=== PATIENT | female | born 1945 | race Caucasian/White ===

== ENCOUNTER 2023-08-11 10:54 | Emergency (ER) | payer MEDICARE, OTHER ==
--- NOTE | 2023-08-11 12:07 | XRAY Report ---
PROCEDURE: Wrist 4 View RT INDICATIONS: Trauma TECHNIQUE: 3 views of the wrist were acquired. COMPARISON: None. FINDINGS: Bones: No fractures or dislocations. Joint spaces are maintained. No suspicious bony lesions. Soft tissues: No suspicious soft tissue calcifications or masses. IMPRESSION: No acute bony abnormality. If there is point tenderness of the scaphoid, consider repeat radiograph i n 7-10 days. Reviewed by: Sandip Hendrix MD on 08/11/2023 12:06 PM PST Approved by: Sandip Hendrix MD on 08/11/2023 12:06 PM PST Station ID: [id number]
--- NOTE | 2023-08-11 12:15 | ED Physician Documentation ---
PD HPI UPPER EXT INJURY - Stated complaint Stated Complaint: R HAND INJURY S/P FALL - Chief complaint Chief Complaint: Trauma Ext - History obtained from History obtained from: Patient - Additonal information Additional information: [place] injuring her right hand and wrist. Also has minor pain of the chin and ribs this morning. Declines anything for pain. Does not have a headache or neck pain. PD PAST MEDICAL HISTORY - Past Medical History Cardiovascular: Hypertension Respiratory: None Neuro: None Endocrine/Autoimmune: None GI: None KINESIOLOGY PROFESSOR: None : Incontinence Psych: Depression Musculoskeletal: None Derm: None - Past Surgical History General: Gastric surgery /KINESIOLOGY PROFESSOR: Other - Present Medications Home Medications: Ambulatory Orders Medication Instructions Recorded Confirmed Lisinopril [Zestril] 20 mg PO DAILY 08/11/23 08/11/23 Sertraline HCl 100 mg PO DAILY 08/11/23 08/11/23 buPROPion HCL [Bupropion HCl Sr] 150 mg PO DAILY 08/11/23 08/11/23 dilTIAZem HCL [Diltiazem 24Hr ER] 240 mg PO DAILY 08/11/23 08/11/23 - Allergies Allergies/Adverse Reactions: Allergies Allergy/AdvReac Type Severity Reaction Status Date / Time bisoprolol [From Ziac] AdvReac Anxiety Verified 08/11/23 11:18 hydrochlorothiazide AdvReac Anxiety Verified 08/11/23 11:18 [From Ziac] - Social History Does the pt smoke?: No Smoking Status: Never smoker Does the pt drink ETOH?: No Does the pt have substance abuse?: No - Immunizations Immunizations are current?: Yes PD ED PE NORMAL - Vitals Vital signs reviewed: Yes - General General: Alert and oriented X 3, No acute distress - Neck Neck: Supple, no meningeal sign, No bony TTP - Cardiac Cardiac: RRR, No murmur - Respiratory Respiratory: No respiratory distress, Clear bilaterally, Other (Unable to elicit any rib tenderness) - Abdomen Abdomen: Non tender - Derm Derm: Normal color, Warm and dry - Extremities Extremities: Other (The entirety of the left hand and wrist is swollen and bruised. It seems that the maximal point of tenderness is of the distal third metacarpal. There is no snuffbox tenderness. No specific wrist tenderness.) - Neuro Neuro: Alert and oriented X 3, Normal speech Eye Opening: Spontaneous Motor: Obeys Commands Results - Vitals Vitals: Vital Signs - 24 hr 08/11/23 11:11 Temperature 36.5 C Heart Rate 70 Respiratory 14 Rate Blood Pressure 135/80 H O2 Saturation 95 - Rads (name of study) 4 view x-ray right wrist negative. Relevant Findings:: Final report received, EMP independent interpretation of test PD Medical Decision Making - ED course ED course: Not consistent with a scaphoid fracture clinically. Maximal point of tenderness is distal third metacarpal which is well visualized on the wrist x-rays without fracture. She is placed in a wrist splint. Declined prescription pain medications. Does not seem clinically to have a rib fracture but x-rays offered and declined by patient. Departure - Departure Disposition: 01 Home, Self Care Clinical Impression: Right wrist sprain Qualifiers: Encounter type: initial encounter Qualified Code(s): S63.501A - Unspecified sprain of right wrist, initial encounter Condition: Good Record reviewed to determine appropriate education?: Yes Instructions: ED Sprain Wrist Comments: Tylenol and/or ibuprofen as needed for pain. Return for new or worsening symptoms. Follow-up with your doctor in 1 week if not improving for recheck.
[2023-08-11 12:34] VITALS: BP 134/81; O2SAT 96
== END 2023-08-11 12:26 | disposition home or self-care (01) ==
LOC: ED 10:54
DX: S63.501A Unspecified sprain of right wrist, initial encounter (principal); W00.0XXA Fall on same level due to ice and snow, initial encounter; Y93.89 Activity, other specified; Y92.89 Other specified places as the place of occurrence of the external cause
CPT/HCPCS: 99283

== ENCOUNTER 2024-12-20 19:54 | Inpatient (IN) ==
[2024-12-20] MEDS ORDERED: iohexoL-300 100 ML VIAL ONE (20:19)
--- NOTE | 2024-12-20 20:20 | ED Physician Documentation ---
History of Present Illness Stated complaint Stated Complaint: ABD PX/V Chief complaint Chief Complaint: Abd Pain History obtained from History obtained from: Patient History of Present Illness Timing: Today Pain level max: 8 Pain level now: 8 Additonal information Additional information: 78-year-old female with left lower quadrant abdominal pain that started around 3 PM today. Has had nausea and vomiting. No diarrhea or constipation. Has not had similar symptoms previously. Has a history of a hysterectomy, c holecystectomy and a gastric band. No fevers. No chills. No recent travel or antibiotics. No cough or congestion. No blood in the stool. No blood in the emesis. The pain is described as cramping and aching. Worse with movement and palpation, nothing makes it better Review of Systems Constitutional Denies: Fever or Chills Gastrointestinal Reports: Nausea and Vomiting Genitourinary Denies: Painful urination or Urinary urgency Musculoskeletal Denies: Back pain Neurological Denies: Headache Meds/Allgy Home Medications Ambulatory Orders Medication Instructions Recorded Confirmed bupropion HCl 150 mg tablet,12 hr 150 mg PO DAILY 08/11/23 08/11/23 sustained-release diltiazem HCl 240 mg capsule,24 240 mg PO DAILY 08/11/23 08/11/23 hr,extended release lisinopril 20 mg tablet (Zestril) 20 mg PO DAILY 08/11/23 08/11/23 sertraline 100 mg tablet 100 mg PO DAILY 08/11/23 08/11/23 Allergies Allergies Allergy/AdvReac Type Severity Reaction Status Date / Time bisoprolol (From Ziac) AdvReac Anxiety Verified 12/20/24 19:59 hydrochlorothiazide (From AdvReac Anxiety Verified 12/20/24 19:59 Ziac) PFSH Active Problems All Active Problems (Updated 12/20/24 @ 23:35 by Ramón Christopher MD) Hypoxia (Acute) Diverticulitis (Acute) Abdominal pain (Acute) Vomiting (Acute) Medical History Medical History (Updated 12/20/24 @ 23:35 by Ramón Christopher MD) Diverticulitis Social History Social History Smoking Status: Never smoker Relationship: Do you feel safe in your home environment?: Yes Suffered physical, verbal, emotional, or financial abuse?: No History of Abuse: No Exam Exam Vital Signs: Vital Signs x48h Temp Pulse Resp BP Pulse Ox O2 Flow Rate 12/20/24 23:00 92 18 156/80 H 91 L 4 12/20/24 22:30 37 C 93 20 147/91 H 91 L 4 12/20/24 22:00 128 H 20 131/90 H 92 6 12/20/24 21:30 134 H 14 127/89 94 4 12/20/24 21:14 132 H 20 131/90 H 94 4 12/20/24 20:44 132 H 92 6 12/20/24 20:03 136 H 18 128/96 H 88 L 12/20/24 20:01 36.6 C 147 H 22 116/89 94 Constitutional normal general appearance Patient appears in pain. HENMT normocephalic and head/scalp atraumatic Eyes PERRL Neck/C-Spine trachea midline Respiratory breath sounds equal bilaterally and normal respiratory effort Cardiovascular regular rhythm noted Tachycardic Gastrointestinal abdomen soft to palpation and nondistended Tender palpation left lower quadrant and left side of the abdomen. No peritoneal signs Genitourinary no CVA tenderness Back/Pelvis no thoracic spine tenderness and no lumbar spine tenderness Extremities No edema Psychiatry mental status grossly normal and oriented x3 Skin skin color normal and no rash Results Vitals Vitals: Vital Signs - 24 hr 12/20/24 20:01 12/20/24 20:03 12/20/24 20:44 Temperature 36.6 C Temperature Source Oral Pulse Rate 147 H 136 H 132 H Respiratory Rate 22 18 Blood Pressure 116/89 128/96 H O2 Saturation 94 88 L 92 O2 Source Room air Room air Nasal cannula If not protocol: Oxygen Flow, liters/minute 6 Pain Intensity 6 8 12/20/24 21:14 12/20/24 21:30 12/20/24 22:00 Temperature Temperature Source Pulse Rate 132 H 134 H 128 H Respiratory Rate 20 14 20 Blood Pressure 131/90 H 127/89 131/90 H O2 Saturation 94 94 92 O2 Source Nasal cannula Nasal cannula Nasal cannula If not protocol: Oxygen Flow, liters/minute 4 4 6 Pain Intensity 12/20/24 22:30 12/20/24 23:00 12/20/24 23:01 Temperature 37 C Temperature Source Temporal Artery Scan Pulse Rate 93 92 Respiratory Rate 20 18 Blood Pressure 147/91 H 156/80 H O2 Saturation 91 L 91 L O2 Source Nasal cannula Nasal cannula If not protocol: Oxygen Flow, liters/minute 4 4 Pain Intensity 7 7 Oxygen O2 Source Nasal cannula EKG (time done) 2012: EKG releavant findings:: EKG personally interpreted by author of this note. Relevant findings are: Rate: Other (139 bpm, sinus tachycardia, multiple PVC, normal axis, normal OR, non-specific ST changes) Labs Labs: Laboratory Tests 12/20/24 12/20/24 12/20/24 20:31 21:08 22:08 WBC 23.2 H RBC 5.77 H Hgb 17.2 H Hct 52.2 H MCV 90.5 MCH 29.8 MCHC 33.0 RDW 14.1 Plt Count 213 MPV 10.6 Neut # (Auto) 20.9 H Lymph # (Auto) 0.7 L Winkler # (Auto) 1.5 H Eos # (Auto) 0.0 Baso # (Auto) 0.1 Absolute Nucleated RBC 0.00 Band Neuts % (Manual) Not Reportable Abnorm Lymph % (Manual) Not Reportable Nucleated RBC % 0.0 Neutrophils # (Manual) Not Reportable Lymphocytes # (Manual) Not Reportable Monocytes # (Manual) Not Reportable Eosinophils # (Manual) Not Reportable Basophils # (Manual) Not Reportable Differential Comment MANUAL=AUTO DIFF Platelet Estimate NORMAL (130-450,000) Platelet Morphology 1+ LARGE PLATELETS RBC Morph Micro Appear NORMAL APPEARANCE Sodium 137 Potassium 4.2 Chloride 101 Carbon Dioxide 23 Anion Gap 13.0 BUN 22 H Creatinine 1.5 H Estimated GFR (MDRD) 33 L Glucose 174 H Lactic Acid 1.6 Calcium 9.3 Total Bilirubin 0.5 AST 27 ALT 25 Alkaline Phosphatase 64 Total Protein 7.3 Albumin 4.5 Globulin 2.8 Albumin/Globulin Ratio 1.6 Lipase 27 Urine Color DARK YELLOW Urine Clarity CLEAR Urine pH 6.0 Ur Specific Cunningham 1.015 Urine Protein TRACE Urine Glucose (UA) NEGATIVE Urine Ketones NEGATIVE Urine Occult Blood NEGATIVE Urine Nitrite NEGATIVE Urine Bilirubin NEGATIVE Urine Urobilinogen 0.2 (NORMAL) Ur Leukocyte Esterase NEGATIVE Ur Microscopic Review NOT INDICATED Urine Culture Comments NOT INDICATED Rads (name of study) CT abd/pel: Relevant Findings:: Final report received cxr: Relevant Findings:: Final report received PD Medical Decision Making ED course Complexity details: reviewed results, re-evaluated patient, considered differential and d/w patient ED course: 78-year-old female with sudden onset abdominal pain earlier today. CT scan was consistent with colitis/diverticulitis. Given a dose of IV Zosyn. Given IV Dilaudid and Zofran. Given IV fluids. She was initially quite tachycardic in the emergency department, this resolved with fluids and pain medication. She was also found to be hypoxic upon arrival to the emergency department, mid to low 80s for oxygen saturation. Unclear etiology. Placed on oxygen. Has a significant elevation of her white blood cell count, 23,000 and appears hemocon centrated with a hemoglobin of 17. At the time of signout, a BNP is pending as well as a respiratory PCR. Please see Dr. Shahid's note for further care of this patient. This document was made in part using voice recognition software. While efforts are made to proofread this document, sound alike and grammatical errors may occur. Discharge Plan Discharge Condition: Stable Clinical Impression: Diverticulitis, Hypoxia Vomiting Qualifiers: Vomiting type: unspecified Nausea presence: with nausea Qualified Code(s): R11.2 - Nausea with vomiting, unspecified Abdominal pain Qualifiers: Abdominal location: unspecified location Qualified Code(s): R10.9 - Unspecified abdominal pain Prescriptions: No Action bupropion HCl 150 MG tablet sustained-release 12 hr 150 mg PO DAILY lisinopril [Zestril] 20 MG tablet 20 mg PO DAILY sertraline 100 MG tablet 100 mg PO DAILY diltiazem HCl 240 MG capsule,extended release 24 hr 240 mg PO DAILY Print Language: Luxembourgish Stand Alone Forms: PCP List
[2024-12-20 20:38] LABS: BASOPHILS # (AUTO) 0.1 10^3/uL (0.0-0.1); BASOPHILS % (AUTO) 0.3 %; HCT - HEMATOCRIT 52.2 % (37.0-47.0); HGB - HEMOGLOBIN 17.2 g/dL (12.0-16.0); LYMPHOCYTES # (AUTO) 0.7 10^3/uL (1.5-3.5); LYMPHOCYTES % (AUTO) 3.1 %; MEAN CORPUSCULAR HEMOGLOBIN 29.8 pg (27.0-31.0); MEAN CORPUSCULAR VOLUME 90.5 fL (81.0-99.0); MEAN PLATELET VOLUME 10.6 fL (7.9-10.8); MONOCYTES # (AUTO) 1.5 10^3/uL (0.0-1.0); MONOCYTES % (AUTO) 6.3 %; NEUTROPHILS # (AUTO) 20.9 10^3/uL (1.5-6.6); NEUTROPHILS % (AUTO) 89.7 %; PLT - PLATELET COUNT 213 10^3/uL (130-450); RED BLOOD COUNT 5.77 10^6/uL (4.20-5.40); RED CELL DISTRIBUTION WIDTH 14.1 % (12.0-15.0); WHITE BLOOD COUNT 23.2 x10^3/uL (4.8-10.8)
[2024-12-20] MEDS: HYDROmorphone 1 MG/ML SYRINGE IVP STA (20:45)
[2024-12-20] MEDS: ONDANSETRON 4 MG/2 ML VIAL IVP STA ×2 (20:46→23:01)
[2024-12-20] MEDS: SODIUM CHLORIDE 0.9% 1,000 ML IV STA ×3 (20:46→23:01)
--- OUTSIDE RECORDS SUMMARY | 2024-12-20 21:04 | EXTERNAL MEDICAL SUMMARY RPT | Continuity of Care Document ---
Author Organization [facility] Address [address] [place] [id number] Phone Results/Labs test date facility value unit notes Result panel 1 MEAN PLATELET VOLUME 2024-12-20 20:31 [facility] 10.6 fl (missing) RED CELL DISTRIBUTION WIDTH 2024-12-20 20:31 [facility] 14.1 % (missing) HGB - HEMOGLOBIN 2024-12-20 20:31 [facility] 17.2 g /dl (missing) PLT - PLATELET COUNT 2024-12-20 20:31 [facility] 213 10 3/ul (missing) WHITE BLOOD COUNT 2024-12-20 20:31 [facility] 23.2 x10 3/ul (missing) MEAN CORPUSCULAR HEMOGLOBIN 2024-12-20 20:31 [facility] 29.8 pg (missing) MEAN CORPUSCULAR HGB CONC 2024-12-20 20:31 [facility] 33 .0 g/dl (missing) RED BLOOD COUNT 2024-12-20 20:31 [facility] 5.77 10 6/ul (missing) HCT - HEMATOCRIT 2024-12-20 20:31 [facility] 52.2 % (missing) MEAN CORPUSCULAR VOLUME 2024-12-20 20:31 [facility] 90.5 fl (missing) Social History date description facility
[2024-12-20 21:07] LABS: DIFFERENTIAL COMMENT MANUAL=AUTO DIFF; PLATELET ESTIMATE, MANUAL NORMAL (130-450,000) (NORMAL); PLATELET MORPHOLOGY 1+ LARGE PLATELETS (NORMAL); RBC MORPHOLOGY (MULTIPLE) NORMAL APPEARANCE (NORMAL)
[2024-12-20 21:37] LABS: ALBUMIN 4.5 g/dL (3.2-5.5); ALBUMIN/GLOBULIN RATIO 1.6 (1.0-2.2); BILIRUBIN,TOTAL 0.5 mg/dL (0.2-1.0); CALCIUM 9.3 mg/dL (8.5-10.3); CREATININE 1.5 mg/dL (0.6-1.3); POTASSIUM 4.2 mmol/L (3.5-4.5); TOTAL PROTEIN 7.3 g/dL (6.4-8.9)
[2024-12-20] MEDS: iohexoL-300 100 ML VIAL IVP ONE (21:50)
--- NOTE | 2024-12-20 22:13 | CT Report ---
PROCEDURE: CT Abdomen/Pelvis W INDICATIONS: LLQ abd pain CONTRAST: 100 ML OMNI TECHNIQUE: After the administration of intravenous contrast, a CT scan of the abdomen and pelvis was performed. Images were recorded and evaluated at appropriate window settings. Reformats: coronal and sagittal. F or radiation dose reduction, the following was used: automated exposure control, adjustment of mA and /or kV according to patient size. COMPARISON: None. FINDINGS: Image quality: Diagnostic. Lower chest: Bibasilar scarring/atelectasis is seen. Heart size is enlarged, no pericardial effusion. Small to moderate-sized hiatal hernia.. Liver: No solid mass. Moderate hepatic steatosis. Scattered hypodensities are seen in right and left hepatic lobes and may represent hepatic cysts measures up to 1.1 cm in size in right hepatic lobe ser ies 2 image 28. Gallbladder: Gallbladder is surgically absent. Biliary tree: No intrahepatic or extrahepatic dilation, accounting for age. Spleen: No splenomegaly. Pancreas: No pancreatic ductal dilation. Adrenals: No adrenal nodule. Kidneys and ureters: No hydronephrosis. No renal cystic lesion which requires follow up. No solid mas s. Stomach, bowel and peritoneum: There is prior gastric banding with postsurgical changes seen in epiga stric region. No evidence of bowel obstruction. No gastric or small bowel wall thickening. Appendix i s not definitively identified. No focal inflammatory changes are seen in right lower quadrant abdomen . Moderate fecal stasis in the colon is seen. There is significant colonic wall thickening and luz maria lonic fat stranding involving mid to distal descending colon and extending to involve the proximal to mid sigmoid colon with small amount of adjacent free fluid in left lower quadrant. No peritoneal josh e air. No definite extraluminal air. No abscess collection. Redundant sigmoid colon is noted. Lymph nodes: No central or retroperitoneal adenopathy. Vessels: No infrarenal aortic aneurysm. Patent portal vein. PELVIS Reproductive organs: Unremarkable. Bladder: No abnormal wall thickening. Pelvic lymph nodes: No pelvic adenopathy by size criteria. Bones: No aggressive osseous abnormality. Other: No significant ventral or inguinal hernia. IMPRESSION: 1. Finding is suggestive of descending colon and sigmoid colitis. Superimposed focal diverticulitis i n distal descending colon/proximal sigmoid colon cannot be excluded. Small amount of free fluid in le ft lower quadrant. No abscess collection. No signs of perforation. 2. Moderate constipation. No other area of abnormal bowel wall thickening. No peritoneal free air. 3. Moderate hepatic steatosis. Scattered hypodensities in liver parenchyma may represent hepatic cyst s. 4. Prior cholecystectomy. Prior lap band procedure. Reviewed by: Dm Cash MD on 12/20/2024 10:12 PM PDT Approved by: Dm Cash MD on 12/20/2024 10:12 PM PDT Station ID: [id number]
[2024-12-20 22:28] LABS: BILIRUBIN,URINE NEGATIVE (NEGATIVE); CLARITY,URINE CLEAR (CLEAR); GLUCOSE, URINE (UA) NEGATIVE (NEGATIVE); KETONES,URINE (UA) NEGATIVE (NEGATIVE); LEUKOCYTE ESTERASE, URINE NEGATIVE (NEGATIVE); NITRITE,URINE NEGATIVE (NEGATIVE); OCCULT BLOOD,URINE NEGATIVE (NEGATIVE); PROTEIN,URINE TRACE mg/dL (NEGATIVE); UROBILINOGEN,URINE 0.2 (NORMAL) E.U./dL (NORMAL)
[2024-12-20] MEDS: PIPERACILLIN/TAZOBACTAM 3.375 GM in SODIUM CHLORIDE 0.9% MINIBAG 100 ML IV STA (23:00)
[2024-12-20] MEDS: HYDROmorphone 0.5 MG/0.5 ML SYRINGE IVP STA (23:01)
--- NOTE | 2024-12-20 23:04 | XRAY Report ---
PROCEDURE: XR Chest 1V INDICATIONS: hypoxia TECHNIQUE: One view of the chest was acquired. COMPARISON: None. FINDINGS: Surgical changes and devices: None. Lungs and pleura: Mild appearance of increased vascularity. Mediastinum: Mediastinal contours appear normal. Heart size is enlarged. Bones and chest wall: No suspicious bony lesions. Overlying soft tissues appear unremarkable. IMPRESSION: Mild increased vascularity suggestive of edema. Reviewed by: Kristina Oliveros MD on 12/20/2024 11:03 PM PDT Approved by: Kristina Oliveros MD on 12/20/2024 11:03 PM PDT Station ID: [id number]
[2024-12-21 00:20] LABS: B. PARAPERTUSSIS- RESP PCR PAN NOT DETECTED; B. PERTUSSIS- RESP PCR PANEL NOT DETECTED; C. PNEUMONIAE- RESP PCR PANEL NOT DETECTED; CORONAVIRUS 229E-RESP PCR NOT DETECTED; CORONAVIRUS HKU1-RESP PCR NOT DETECTED; CORONAVIRUS NL63-RESP PCR NOT DETECTED; CORONAVIRUS OC43-RESP PCR NOT DETECTED; HUMAN METAPNEUMOVIRUS NOT DETECTED; INFLUENZA A- RESP PCR PANEL NOT DETECTED; INFLUENZA B - RESP PCR PANEL NOT DETECTED; M. PNEUMONIAE- RESP PCR PANEL NOT DETECTED; PARAINFLUENZA VIRUS 1 NOT DETECTED; PARAINFLUENZA VIRUS 2 NOT DETECTED; PARAINFLUENZA VIRUS 4 NOT DETECTED; RHINOVIRUS/ENTEROVIRUS NOT DETECTED; RSV- RESP PCR PANEL NOT DETECTED; SARS-CoV-2 -RESP PCR PANEL NOT DETECTED
[2024-12-21] MEDS: SODIUM CHLORIDE 0.9% 1,000 ML IV STA (01:21)
[2024-12-21] MEDS: ONDANSETRON 4 MG/2 ML VIAL IVP STA (02:20)
[2024-12-21] MEDS: HYDROmorphone 0.5 MG/0.5 ML SYRINGE IVP PRN ×2 (05:40→19:02)
[2024-12-21] MEDS: PIPERACILLIN/TAZOBACTAM 4.5 GM in SODIUM CHLORIDE 0.9% MINIBAG 100 ML IV SCH (05:40)
[2024-12-21 06:04] LABS: BASOPHILS % (AUTO) 0.1 %; HCT - HEMATOCRIT 53.2 % (37.0-47.0); HGB - HEMOGLOBIN 17.3 g/dL (12.0-16.0); LYMPHOCYTES % (AUTO) 2.7 %; MEAN CORPUSCULAR HGB CONC 32.5 g/dL (32.0-36.0); MEAN CORPUSCULAR VOLUME 92.2 fL (81.0-99.0); MONOCYTES % (AUTO) 7.2 %; NEUTROPHILS % (AUTO) 89.3 %; PLT - PLATELET COUNT 171 10^3/uL (130-450); RED BLOOD COUNT 5.77 10^6/uL (4.20-5.40); RED CELL DISTRIBUTION WIDTH 14.3 % (12.0-15.0); WHITE BLOOD COUNT 22.9 x10^3/uL (4.8-10.8)
[2024-12-21 06:11] LABS: ABNORMAL LYMPHS % (MANUAL) 0 %
[2024-12-21 06:18] LABS: CALCIUM 8.2 mg/dL (8.5-10.3); CREATININE 1.1 mg/dL (0.6-1.3); POTASSIUM 4.7 mmol/L (3.5-4.5)
[2024-12-21] MEDS: SODIUM CHLORIDE 0.9% 500 ML IV ONE (06:46)
[2024-12-21] MEDS: PANTOPRAZOLE 40 MG TABLET PO SCH (06:52)
[2024-12-21 06:54] LABS: BAND NEUTROPHILS % (MANUAL) 9 %; LYMPHOCYTES # (MANUAL) 0.2 10^3/uL (1.5-3.5); LYMPHOCYTES % (MANUAL) 1 %; MONOCYTES # (MANUAL) 0.7 10^3/uL (0.0-1.0); PLATELET ESTIMATE, MANUAL NORMAL (130-450,000) (NORMAL); RBC MORPHOLOGY (MULTIPLE) NORMAL APPEARANCE (NORMAL)
[2024-12-21 06:55] LABS: DIFFERENTIAL COMMENT MANUAL DIFFERENTIAL; WBC MORPHOLOGY (MULTIPLE) NORMAL APPEARANCE (NORMAL)
--- NOTE | 2024-12-21 07:20 | ED Physician Documentation ---
ED Addendum Addendum Addendum: patient endorsed to me at 11pm shift change awaiting admission for sepsis 2/2 diverticulitis/colitis, as well as hypoxia with possible pulmonary edema on cxr. Her BNP is normal and RVP was negative. Patient was provided with judicious fluids overnight. Plan to admit pending bed availability. Discharge Plan Discharge Patient Disposition: 66 [facility] DC/Xfer Condition: Stable Clinical Impression: Diverticulitis, Hypoxia Vomiting Qualifiers: Vomiting type: unspecified Nausea presence: with nausea Qualified Code(s): R11.2 - Nausea with vomiting, unspecified Abdominal pain Qualifiers: Abdominal location: unspecified location Qualified Code(s): R10.9 - Unspecified abdominal pain Prescriptions: No Action bupropion HCl 150 MG tablet sustained-release 12 hr 150 mg PO DAILY lisinopril [Zestril] 20 MG tablet 20 mg PO DAILY sertraline 100 MG tablet 100 mg PO DAILY diltiazem HCl 240 MG capsule,extended release 24 hr 240 mg PO DAILY Print Language: Tunisian
[2024-12-21] MEDS: ACETAMINOPHEN 500 MG TABLET PO PRN (08:54)
[2024-12-21] MEDS: ONDANSETRON 4 MG/2 ML VIAL IVP PRN (08:55)
--- NOTE | 2024-12-21 14:28 | PHARMACY PROGRESS NOTE ---
Best Possible Medication History Admit Date and Time: Home Medications Medication Instructions Recorded Confirmed Type bupropion HCl 150 mg tablet,12 hr 150 mg PO BID 08/11/23 12/21/24 History sustained-release lisinopril 20 mg tablet (Zestril) 20 mg PO BID 08/11/23 12/21/24 History sertraline 100 mg tablet 200 mg PO DAILY 08/11/23 12/21/24 History diltiazem HCl 240 mg 240 mg PO DAILY 12/21/24 12/21/24 History capsule,extended release 24 hr, controlled (DILT-XR) geriatric multivitamin-min 1 tab PO DAILY 12/21/24 12/21/24 History primidone 50 mg tablet 150 mg PO BID 12/21/24 12/21/24 History trospium 20 mg tablet 10 mg PO BID 12/21/24 12/21/24 History Processed by: Pharmacy Medications reviewed in ED?: Yes Medication History completed: Yes Secondary Source(s): Insurance records [facility] Statement: As the person ultimately responsible for medication therapy, providers are able to order a medication from an existing home medication list in [facility] via the "Reconcile Routine" prior to Confirmation of that medication by residential direct support professional. Such practice is discouraged except when the physician, in their clinical judgment, deems that a medical need exists for a medication without regard to previous use.
--- OUTSIDE RECORDS SUMMARY | 2024-12-21 15:04 | EXTERNAL MEDICAL SUMMARY RPT | Continuity of Care Document ---
Author Organization [facility] Address [address] [place] [id number] Phone Results/Labs test date facility value unit notes Result panel 1 NUCLEATED RED BLOOD CELLS AUTO 2024-12-20 20:31 [facility] 0.0 /100wbc (missing) EOSINOPHILS # (AUTO) 2024-12-20 20:31 [facility] 0.0 10 3/ul (missing) NRBC ABSOLUTE COUNT (AUTO) 2024-12-20 20:31 [facility] 0.00 x10 3/ul (missing) BASOPHILS # (AUTO) 2024-12-20 20:31 [facility] 0.1 10 3/ul (missing) BILIRUBIN,TOTAL 2024-12-20 20:31 [facility] 0.5 mg/dl As of March 2023 testing method has changed, this may include reference ranges. LYMPHOCYTES # (AUTO) 2024-12-20 20:31 [facility] 0.7 10 3/ul (missing) PLATELET MORPHOLOGY 2024-12-20 20:31 [facility] 1+ LARGE PLATELETS (missing) (missing) MONOCYTES # (AUTO) 2024-12-20 20:31 [facility] 1.5 10 3/ul (missing) CREATININE 2024-12-20 20:31 [facility] 1.5 mg/dl As of March 2023 testing method has changed, this may include reference ranges. ALBUMIN/GLOBULIN RATIO 2024-12-20 20:31 [facility] 1.6 (missing) (missing) MEAN PLATELET VOLUME 2024-12-20 20:31 [facility] 10.6 fl (missing) CHLORIDE 2024-12-20 20:31 [facility] 101 mmol/l As of March 2023 testing method has changed, this may include reference ranges. ANION GAP 2024-12-20 20:31 [facility] 13.0 (missing) (missing) SODIUM 2024-12-20 20:31 [facility] 137 mmol/l As of March 2023 testing method has changed, this may include reference ranges. RED CELL DISTRIBUTION WIDTH 2024-12-20 20: [facility] 14.1 % (missing) HGB - HEMOGLOBIN 2024-12-20 20: [facility] 17.2 g/dl (missing) GLUCOSE 2024-12-20 20: [facility] 174 mg/dl As of March 2023 testing method has changed, this may include reference ranges. GLOBULIN 2024-12-20 20: [facility] 2.8 g/dl (missing) NEUTROPHILS # (AUTO) 2024-12-20 20: [facility] 20.9 10 3/ul (missing) PLT - PLATELET COUNT 2024-12-20 20: [facility] 213 10 3/ul (missing) BUN - BLOOD UREA NITROGEN 2024-12-20 20: [facility] 22 mg/dl As of March 2023 testing method has changed, this may include reference ranges. CARBON DIOXIDE - CO2 2024-12-20 20: [facility] 23 mmol/l As of March 2023 testing method has changed, this may include reference ranges. WHITE BLOOD COUNT 2024-12-20 20: [facility] 23.2 x10 3/ul (missing) ALT ALANINE AMINOTRANSFERASE 2024-12-20 20:31 [facility] 25 iu/l As of March 2023 testing method has changed, this may include reference ranges. AST ASPARTATE AMINOTRANSFERASE 2024-12-20 20: [facility] 27 iu/l Slightly Hemolyzed: Results may be affected. As of March 2023 testing method has changed, this may include reference ranges. LIPASE 2024-12-20 20:31 [facility] 27 u/l As of March 2023 testing method has changed, this may include reference ranges. MEAN CORPUSCULAR HEMOGLOBIN 2024-12-20 20:31 [facility] 29.8 pg (missing) GFR - MDRD 2024-12-20 20:31 [facility] 33 (missing) Social History date description facility
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
[2024-12-21] MEDS ORDERED: SODIUM CHLORIDE FLUSH 0.9% 10 ML SYRINGE IVP PRN (15:50)
[2024-12-21] MEDS: SODIUM CHLORIDE FLUSH 0.9% 10 ML SYRINGE IVP SCH (16:11)
[2024-12-21] MEDS: SODIUM CHLORIDE 0.9% 1,000 ML IV SCH (16:47)
[2024-12-21] MEDS: PIPERACILLIN/TAZOBACTAM 3.375 GM in SODIUM CHLORIDE 0.9% MINIBAG 100 ML IV SCH (19:01)
[2024-12-21] MEDS: lisinopriL 20 MG TABLET PO SCH (21:40)
[2024-12-21] MEDS: buPROPion SR 150 MG TABLET PO SCH (21:40)
[2024-12-22 05:59] LABS: BASOPHILS % (AUTO) 0.2 %; HGB - HEMOGLOBIN 14.8 g/dL (12.0-16.0); LYMPHOCYTES % (AUTO) 5.9 %; MEAN CORPUSCULAR HEMOGLOBIN 30.6 pg (27.0-31.0); MEAN CORPUSCULAR HGB CONC 32.2 g/dL (32.0-36.0); MEAN PLATELET VOLUME 11.5 fL (7.9-10.8); MONOCYTES % (AUTO) 7.3 %; NEUTROPHILS % (AUTO) 84.6 %; PLT - PLATELET COUNT 150 10^3/uL (130-450); RED BLOOD COUNT 4.84 10^6/uL (4.20-5.40); RED CELL DISTRIBUTION WIDTH 14.7 % (12.0-15.0); WHITE BLOOD COUNT 22.5 x10^3/uL (4.8-10.8)
[2024-12-22 06:04] LABS: ABNORMAL LYMPHS % (MANUAL) 0 %
[2024-12-22 06:16] LABS: CALCIUM 7.7 mg/dL (8.5-10.3); CREATININE 1.2 mg/dL (0.6-1.3); POTASSIUM 3.6 mmol/L (3.5-4.5)
[2024-12-22 06:29] LABS: BAND NEUTROPHILS % (MANUAL) 14 %; DIFFERENTIAL COMMENT MANUAL DIFFERENTIAL; EOSINOPHILS # (MANUAL) 0.2 10^3/uL (0-0.7); LYMPHOCYTES # (MANUAL) 0.9 10^3/uL (1.5-3.5); LYMPHOCYTES % (MANUAL) 4 %; MONOCYTES # (MANUAL) 1.6 10^3/uL (0.0-1.0); NEUTROPHILS # (MANUAL) 19.8 10^3/uL (1.5-6.6); PLATELET ESTIMATE, MANUAL NORMAL (130-450,000) (NORMAL); PLATELET MORPHOLOGY NORMAL APPEARANCE (NORMAL); RBC MORPHOLOGY (MULTIPLE) NORMAL APPEARANCE (NORMAL); WBC MORPHOLOGY (MULTIPLE) NORMAL APPEARANCE (NORMAL)
[2024-12-22] MEDS: PRIMIDONE 50 MG TABLET PO SCH (08:23)
[2024-12-22] MEDS: SERTRALINE 50 MG TABLET PO SCH (08:48)
[2024-12-22] MEDS: diltiaZEM CD 240 MG CAPSULE PO SCH (08:48)
[2024-12-22] MEDS: PIPERACILLIN/TAZOBACTAM 3.375 GM in SODIUM CHLORIDE 0.9% MINIBAG 100 ML IV SCH (10:41)
--- NOTE | 2024-12-22 13:03 | PROVIDER PROGRESS NOTE ---
Subjective Prog Note Date Prog Note Date: 12/22/24 Subjective Pt reports feeling: No change Current Medications Current Medications Current Medications: Current Medications Generic Name Dose Route Start Last Admin Trade Name Freq PRN Reason Stop Dose Admin Acetaminophen 650 mg 12/21/24 15:50 Acetaminophen 325 Mg Tablet PO Q4HR PRN Pain 1 to 4, or Fever Bupropion HCl 150 mg 12/21/24 21:00 12/22/24 08:48 Bupropion Sr 150 Mg Tablet PO 150 mg BID SB Administration Diltiazem HCl 240 mg 12/22/24 09:00 12/22/24 08:48 Diltiazem Cd 240 Mg Capsule PO 240 mg DAILY SB Administration Hydromorphone HCl 0.5 mg 12/21/24 15:50 12/22/24 10:41 Hydromorphone 0.5 Mg/0.5 Ml Syringe IVP 0.5 mg Q2H PRN Administration Pain 8 to 10 Piperacillin Sod/Tazobactam 100 mls @ 25 mls/hr 12/22/24 10:00 12/22/24 10:41 Sod 3.375 gm/ Sodium Chloride IV 25 mls/hr Q8H SB Administration Lisinopril 20 mg 12/21/24 21:00 12/22/24 08:48 Lisinopril 20 Mg Tablet PO 20 mg BID SB Administration Ondansetron HCl 4 mg 12/21/24 15:50 Ondansetron 4 Mg/2 Ml Vial IVP Q6HR PRN Nausea / Vomiting Pantoprazole Sodium 40 mg 12/21/24 07:00 12/22/24 06:17 Pantoprazole 40 Mg Tablet PO 40 mg QDAC SB Administration Primidone 150 mg 12/21/24 21:00 12/22/24 08:48 Primidone 50 Mg Tablet PO 150 mg BID SB Administration Sertraline HCl 200 mg 12/22/24 09:00 12/22/24 08:48 Sertraline 50 Mg Tablet PO 200 mg DAILY SB Administration Sodium Chloride 10 ml 12/21/24 15:50 Sodium Chloride Flush 0.9% 10 Ml Syringe IVP PRN PRN NEEDED PER PROVIDER ORDERS Sodium Chloride 10 ml 12/21/24 17:00 12/22/24 08:49 Sodium Chloride Flush 0.9% 10 Ml Syringe IVP Not Given 0100,0900,1700 [facility] Objective Vital Signs/Intake & Output Reviewed Vital Signs: Yes Vital Signs: Vital Signs x48h Temp Pulse Pulse Resp BP Pulse Ox 12/22/24 11:44 37.1 C 89 20 130/71 95 12/22/24 08:10 36.5 C 94 14 132/70 H 95 12/22/24 05:17 36.4 C L 106 H 20 137/86 H 96 Intake & Output: Intake & Output 12/19/24 12/20/24 12/21/24 12/22/24 23:59 23:59 23:59 23:59 Intake Total 1100 / 1100 3810 / 3810 1350 / 1350 Balance 1100 / 1100 3810 / 3810 1350 / 1350 Weight (kg) 106.7 kg 121 kg Objective General Appearance: positive No acute distress and Alert Eyes Bilateral: positive Normal inspection ENT: positive ENT inspection nml Neck: positive Nml inspection Respiratory: positive Chest non-tender and No respiratory distress Cardiovascular: positive Regular rate & rhythm Abdomen: positive Tenderness Skin: positive Color nml Extremities: positive Non-tender Neurologic/Psychiatric: positive Oriented x3 Lab Results 12/22/24 05:43 12/22/24 05:43 Other Labs: Lab Results x24hrs 12/22/24 Range/Units 05:43 WBC 22.5 H (4.8-10.8) x10^3/uL RBC 4.84 (4.20-5.40) 10^6/uL Hgb 14.8 (12.0-16.0) g/dL Hct 46.0 (37.0-47.0) % MCV 95.0 (81.0-99.0) fL MCH 30.6 (27.0-31.0) pg MCHC 32.2 (32.0-36.0) g/dL RDW 14.7 (12.0-15.0) % Plt Count 150 (130-450) 10^3/uL MPV 11.5 H (7.9-10.8) fL Neut # (Auto) Not Reportable Lymph # (Auto) Not Reportable [place] # (Auto) Not Reportable Eos # (Auto) Not Reportable Baso # (Auto) Not Reportable Absolute Nucleated RBC Not Reportable Total Counted 100 Band Neuts % (Manual) 14 H (0 - 10) % Abnorm Lymph % (Manual) 0 % Nucleated RBC % Not Reportable Neutrophils # (Manual) 19.8 H (1.5-6.6) 10^3/uL Lymphocytes # (Manual) 0.9 L (1.5-3.5) 10^3/uL Monocytes # (Manual) 1.6 H (0.0-1.0) 10^3/uL Eosinophils # (Manual) 0.2 (0-0.7) 10^3/uL Basophils # (Manual) 0.0 (0-0.1) 10^3/uL Differential Comment MANUAL DIFFERENTIAL WBC Morphology NORMAL APPEARANCE (NORMAL) Platelet Estimate NORMAL (130-450,000) (NORMAL) Platelet Morphology NORMAL APPEARANCE (NORMAL) RBC Morph Micro Appear NORMAL APPEARANCE (NORMAL) Sodium 136 (135-145) mmol/L Potassium 3.6 (3.5-4.5) mmol/L Chloride 107 (101-111) mmol/L Carbon Dioxide 22 (21-32) mmol/L Anion Gap 7.0 (6-13) BUN 36 H (6-20) mg/dL Creatinine 1.2 (0.6-1.3) mg/dL Estimated GFR (MDRD) 43 L (>89) Glucose 144 H (74-104) mg/dL Calcium 7.7 L (8.5-10.3) mg/dL Assessment/Plan Problem List (1) Diverticulitis: Impression: Diverticulitis without abscess, failed outpatient treatment WBC 22.5 today, 22.9 yesterday Medically managed for now I am ordering saline at 100 Clear liquid diet Continuing Zosyn 3.375 g IV every 8 hours CBC in a.m. to monitor response to antibiotics If no significant progress in the next few days, will consult surgery (2) Hypoxia: Impression: Hypoxic in the ER, now on room air. This was likely due to abdominal pain preventing full inspiration (3) Tremor: Impression: Continuing home dose primidone (4) Hypertension: Impression: Continuing home dose diltiazem to 40 mg CD, lisinopril 20 mg p.o. daily (5) Depression: Impression: Continue bupropion 150 mg twice daily, sertraline 200 mg daily
--- NOTE | 2024-12-22 15:47 | OT Plan of Care ---
OT Plan of Care OT Plan of Care: Diagnosis Diagnosis Diverticulitis Chief Complaint N/V Onset of Chief Complaint [employer] Medical History (Updated 12/21/24 @ 19:31 by BERNARDO Martel) Diverticulitis Assessment Assessment Pt is am 79 y/o female adm with N/V 2/2 Diverticulitis requiring antibiotic management. Seen today for OT eval. Met supine in bed, A&Ox4 , willing to participate with therapy. Performed supine to sit GCA, sit to stand and ambulation to/from bathroom using RW MIN A Toilet tx MIN A and LB clothing management MIN A with increased time. Overall cont to present with decreased endurance, activity tolerance and ADL status. Progressing towards goals and will benefit from cont OT services during acute stay. Rec d/c home with HHOT/PT once medically stable . Goals - Activities of Daily Living Improve Upper Extremity Modified Independent Dressing to: Improve Lower Extremity Modified Independent Dressing to: Improve Grooming/Hygiene to: Modified Independent Improve Bathing to: Modified Independent Improve Toileting to: Modified Independent Plan Treatment Frequency 1x/day Duration Until discharge -Discharge Recommendations Discharge Location Previous Living Situation Support/Services Needed Home Health O.T. Transport Needs at Discharge Personal vehicle
[2024-12-22] MEDS: ACETAMINOPHEN 325 MG TABLET PO PRN (16:11)
[2024-12-23 05:33] LABS: BASOPHILS % (AUTO) 0.2 %; EOSINOPHILS % (AUTO) 0.3 %; HCT - HEMATOCRIT 38.5 % (37.0-47.0); HGB - HEMOGLOBIN 12.4 g/dL (12.0-16.0); LYMPHOCYTES # (AUTO) 1.1 10^3/uL (1.5-3.5); LYMPHOCYTES % (AUTO) 8.9 %; MEAN CORPUSCULAR HEMOGLOBIN 30.5 pg (27.0-31.0); MEAN CORPUSCULAR HGB CONC 32.2 g/dL (32.0-36.0); MEAN CORPUSCULAR VOLUME 94.8 fL (81.0-99.0); MEAN PLATELET VOLUME 11.1 fL (7.9-10.8); MONOCYTES # (AUTO) 0.9 10^3/uL (0.0-1.0); NEUTROPHILS # (AUTO) 10.3 10^3/uL (1.5-6.6); NEUTROPHILS % (AUTO) 82.4 %; PLT - PLATELET COUNT 126 10^3/uL (130-450); RED BLOOD COUNT 4.06 10^6/uL (4.20-5.40); RED CELL DISTRIBUTION WIDTH 14.5 % (12.0-15.0); WHITE BLOOD COUNT 12.5 x10^3/uL (4.8-10.8)
[2024-12-23 05:50] LABS: CALCIUM 7.8 mg/dL (8.5-10.3); CREATININE 0.8 mg/dL (0.6-1.3); POTASSIUM 3.6 mmol/L (3.5-4.5)
--- NOTE | 2024-12-23 07:46 | PT Plan of Care ---
PT Plan of Care Physical Therapy Plan of Care: Diagnosis Diagnosis Diverticulitis Referring Provider April Shahid Patient Status Inpatient Chief Complaint Chief Complaint N/V Onset of Chief Complaint [employer] Medical History (Updated 12/21/24 @ 19:31 by BERNARDO Martel) Diverticulitis Assessment Assessment Pt is an 79yo F referred for PT eval d/t limited mobility and weakness. Admitted to hospital d/t n/v, found to have diverticulitis and now requiring antibiotic management. 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 Per OT, pt transfered supine to sit with CGA and sit to stand with minAx1 and FWW. Short distance ambulation to/from bathroom approx 20' and benefits from verbal cues for pathfinding and safety. Gait pattern with short stride length and reduced toe clearance BL. Pt presenting with decreased endurance, activity tolerance and ambulation distance. Now requiring FWW vs SPC used at baseline. Pt will benefit from continued PT in acute setting to improve gait pattern and progress amb distance. When medically clear, PT rec dc to SNF vs home with HH pending progress with gait training. Goals Improve bed mobility to: Modified Independent Improve supine to sit to: Modified Independent Improve sit to stand to: Modified Independent Improve pivot transfer ability Modified Independent to: Improve sit to supine to: Modified Independent Improve gait ability to: CGA Assistive Device Used: Front Wheeled Walker PT Plan of Care Frequency 1-2x/day Duration Until goals are met Discharge Recommendations Discharge Location SNF v home DC Equipment Recommended Front wheeled walker Other may need FWW Transport Needs at Discharge Personal vehicle
--- NOTE | 2024-12-23 13:44 | PROVIDER PROGRESS NOTE ---
Subjective Prog Note Date Prog Note Date: 12/23/24 Subjective Pt reports feeling: Improved Current Medications Current Medications Current Medications: Current Medications Generic Name Dose Route Start Last Admin Trade Name Freq PRN Reason Stop Dose Admin Acetaminophen 650 mg 12/21/24 15:50 12/23/24 12:24 Acetaminophen 325 Mg Tablet PO 650 mg Q4HR PRN Administration Pain 1 to 4, or Fever Bupropion HCl 150 mg 12/21/24 21:00 12/23/24 08:32 Bupropion Sr 150 Mg Tablet PO 150 mg BID SB Administration Diltiazem HCl 240 mg 12/22/24 09:00 12/23/24 08:32 Diltiazem Cd 240 Mg Capsule PO 240 mg DAILY SB Administration Hydromorphone HCl 0.5 mg 12/21/24 15:50 12/22/24 16:11 Hydromorphone 0.5 Mg/0.5 Ml Syringe IVP 0.5 mg Q2H PRN Administration Pain 8 to 10 Piperacillin Sod/Tazobactam 100 mls @ 25 mls/hr 12/22/24 10:00 12/23/24 10:25 Sod 3.375 gm/ Sodium Chloride IV 25 mls/hr Q8H SB Administration Lisinopril 20 mg 12/21/24 21:00 12/23/24 08:32 Lisinopril 20 Mg Tablet PO 20 mg BID SB Administration Ondansetron HCl 4 mg 12/21/24 15:50 Ondansetron 4 Mg/2 Ml Vial IVP Q6HR PRN Nausea / Vomiting Pantoprazole Sodium 40 mg 12/21/24 07:00 12/23/24 05:13 Pantoprazole 40 Mg Tablet PO 40 mg QDAC SB Administration Primidone 150 mg 12/21/24 21:00 12/23/24 08:39 Primidone 50 Mg Tablet PO 150 mg BID SB Administration Sertraline HCl 200 mg 12/22/24 09:00 12/23/24 08:32 Sertraline 50 Mg Tablet PO 200 mg DAILY SB Administration Sodium Chloride 10 ml 12/21/24 15:50 Sodium Chloride Flush 0.9% 10 Ml Syringe IVP PRN PRN NEEDED PER PROVIDER ORDERS Sodium Chloride 10 ml 12/21/24 17:00 12/23/24 09:44 Sodium Chloride Flush 0.9% 10 Ml Syringe IVP 10 ml 0100,0900,1700 SB Administration Objective Vital Signs/Intake & Output Reviewed Vital Signs: Yes Vital Signs: Vital Signs x48h Temp Pulse Resp BP Pulse Ox 12/23/24 12:23 36.6 C 74 20 159/76 H 93 12/23/24 07:50 36.3 C L 71 16 160/83 H 95 Intake & Output: Intake & Output 12/20/24 12/21/24 12/22/24 12/23/24 23:59 23:59 23:59 23:59 Intake Total 1100 / 1100 3810 / 3810 3960 / 3960 1440 / 1440 Balance 1100 / 1100 3810 / 3810 3960 / 3960 1440 / 1440 Weight (kg) 106.7 kg 121 kg Objective General Appearance: positive No acute distress and Alert Eyes Bilateral: positive Normal inspection ENT: positive ENT inspection nml Neck: positive Nml inspection Respiratory: positive Chest non-tender and No respiratory distress Cardiovascular: positive Regular rate & rhythm Abdomen: positive Tenderness Skin: positive Color nml Extremities: positive Non-tender Neurologic/Psychiatric: positive Oriented x3 Lab Results 12/23/24 05:13 12/23/24 05:13 Other Labs: Lab Results x24hrs 12/23/24 Range/Units 05:13 WBC 12.5 H (4.8-10.8) x10^3/uL RBC 4.06 L (4.20-5.40) 10^6/uL Hgb 12.4 (12.0-16.0) g/dL Hct 38.5 (37.0-47.0) % MCV 94.8 (81.0-99.0) fL MCH 30.5 (27.0-31.0) pg MCHC 32.2 (32.0-36.0) g/dL RDW 14.5 (12.0-15.0) % Plt Count 126 L (130-450) 10^3/uL MPV 11.1 H (7.9-10.8) fL Neut # (Auto) 10.3 H (1.5-6.6) 10^3/uL Lymph # (Auto) 1.1 L (1.5-3.5) 10^3/uL [place] # (Auto) 0.9 (0.0-1.0) 10^3/uL Eos # (Auto) 0.0 (0.0-0.7) 10^3/uL Baso # (Auto) 0.0 (0.0-0.1) 10^3/uL Absolute Nucleated RBC 0.00 x10^3/uL Nucleated RBC % 0.0 /100WBC Sodium 136 (135-145) mmol/L Potassium 3.6 (3.5-4.5) mmol/L Chloride 107 (101-111) mmol/L Carbon Dioxide 26 (21-32) mmol/L Anion Gap 3.0 L (6-13) BUN 21 H (6-20) mg/dL Creatinine 0.8 (0.6-1.3) mg/dL Estimated GFR (MDRD) 69 L (>89) Glucose 113 H (74-104) mg/dL Calcium 7.8 L (8.5-10.3) mg/dL Magnesium 2.0 (1.7-2.3) mg/dL Assessment/Plan Problem List (1) Diverticulitis: Impression: Diverticulitis without abscess, failed outpatient treatment WBC 22.5 today, 22.9 yesterday Medically managed for now I am ordering saline at 100 Clear liquid diet Continuing Zosyn 3.375 g IV every 8 hours CBC in a.m. to monitor response to antibiotics If no significant progress in the next few days, will consult surgery 12/23/2024: WBC down to 12.5. No improvement in symptoms as of this morning, but after a few hours her appetite has started to return. I am escalating her to full liquid diet. I am continuing Zosyn for another day before likely transitioning to Augmentin. Monitoring daily BMP to watch for renal toxicity (2) Hypoxia: Impression: Hypoxic in the ER, now on room air. This was likely due to abdominal pain preventing full inspiration (3) Tremor: Impression: Continuing home dose primidone (4) Hypertension: Impression: Continuing home dose diltiazem to 40 mg CD, lisinopril 20 mg p.o. daily (5) Depression: Impression: Continue bupropion 150 mg twice daily, sertraline 200 mg daily
[2024-12-23] MEDS: ONDANSETRON 4 MG/2 ML VIAL IVP PRN (14:03)
[2024-12-23] MEDS: PROCHLORPERAZINE 10 MG/2 ML VIAL IVP PRN (18:07)
[2024-12-24 06:10] LABS: CALCIUM 7.9 mg/dL (8.5-10.3); CREATININE 0.7 mg/dL (0.6-1.3); POTASSIUM 3.6 mmol/L (3.5-4.5)
[2024-12-24 06:43] LABS: BASOPHILS % (AUTO) 0.3 %; EOSINOPHILS # (AUTO) 0.1 10^3/uL (0.0-0.7); EOSINOPHILS % (AUTO) 0.6 %; HCT - HEMATOCRIT 38.5 % (37.0-47.0); HGB - HEMOGLOBIN 12.6 g/dL (12.0-16.0); LYMPHOCYTES % (AUTO) 8.3 %; MEAN CORPUSCULAR HEMOGLOBIN 30.3 pg (27.0-31.0); MEAN CORPUSCULAR HGB CONC 32.7 g/dL (32.0-36.0); MEAN CORPUSCULAR VOLUME 92.5 fL (81.0-99.0); MEAN PLATELET VOLUME 11.4 fL (7.9-10.8); MONOCYTES # (AUTO) 0.9 10^3/uL (0.0-1.0); MONOCYTES % (AUTO) 7.6 %; NEUTROPHILS # (AUTO) 9.5 10^3/uL (1.5-6.6); NEUTROPHILS % (AUTO) 82.3 %; PLT - PLATELET COUNT 152 10^3/uL (130-450); RED BLOOD COUNT 4.16 10^6/uL (4.20-5.40); RED CELL DISTRIBUTION WIDTH 14.2 % (12.0-15.0); WHITE BLOOD COUNT 11.5 x10^3/uL (4.8-10.8)
--- NOTE | 2024-12-24 15:37 | PROVIDER PROGRESS NOTE ---
Subjective Prog Note Date Prog Note Date: 12/24/24 Subjective Pt reports feeling: Improved Current Medications Current Medications Current Medications: Current Medications Generic Name Dose Route Start Last Admin Trade Name Freq PRN Reason Stop Dose Admin Acetaminophen 650 mg 12/21/24 15:50 12/23/24 23:57 Acetaminophen 325 Mg Tablet PO 650 mg Q4HR PRN Administration Pain 1 to 4, or Fever Amoxicillin/Clavulanate Potassium 1 tab 12/24/24 21:00 Amox/Clav 875 Mg/125 Mg Tablet PO BID SB Bupropion HCl 150 mg 12/21/24 21:00 12/24/24 08:44 Bupropion Sr 150 Mg Tablet PO 150 mg BID SB Administration Diltiazem HCl 240 mg 12/22/24 09:00 12/24/24 08:43 Diltiazem Cd 240 Mg Capsule PO 240 mg DAILY SB Administration Hydromorphone HCl 0.5 mg 12/21/24 15:50 12/22/24 16:11 Hydromorphone 0.5 Mg/0.5 Ml Syringe IVP 0.5 mg Q2H PRN Administration Pain 8 to 10 Lisinopril 20 mg 12/21/24 21:00 12/24/24 08:43 Lisinopril 20 Mg Tablet PO 20 mg BID SB Administration Ondansetron HCl 4 mg 12/21/24 15:50 12/23/24 14:03 Ondansetron 4 Mg/2 Ml Vial IVP 4 mg Q6HR PRN Administration Nausea / Vomiting Pantoprazole Sodium 40 mg 12/21/24 07:00 12/24/24 06:09 Pantoprazole 40 Mg Tablet PO 40 mg QDAC SB Administration Primidone 150 mg 12/21/24 21:00 12/24/24 08:44 Primidone 50 Mg Tablet PO 150 mg BID SB Administration Prochlorperazine Edisylate 10 mg 12/23/24 16:48 12/23/24 18:07 Prochlorperazine 10 Mg/2 Ml Vial IVP 10 mg Q6HR PRN Administration Nausea / Vomiting Sertraline HCl 200 mg 12/22/24 09:00 12/24/24 08:44 Sertraline 50 Mg Tablet PO 200 mg DAILY SB Administration Sodium Chloride 10 ml 12/21/24 15:50 Sodium Chloride Flush 0.9% 10 Ml Syringe IVP PRN PRN NEEDED PER PROVIDER ORDERS Sodium Chloride 10 ml 12/21/24 17:00 12/24/24 08:44 Sodium Chloride Flush 0.9% 10 Ml Syringe IVP 10 ml 0100,0900,1700 SB Administration Objective Vital Signs/Intake & Output Reviewed Vital Signs: Yes Vital Signs: Vital Signs x48h Temp Pulse Resp BP Pulse Ox 12/24/24 07:55 36.5 C 76 18 162/86 H 95 Intake & Output: Intake & Output 12/21/24 12/22/24 12/23/24 12/24/24 23:59 23:59 23:59 23:59 Intake Total 3810 / 3810 3960 / 3960 2350 / 2350 600 / 600 Balance 3810 / 3810 3960 / 3960 2350 / 2350 600 / 600 Weight (kg) 121 kg Objective General Appearance: positive No acute distress and Alert Eyes Bilateral: positive Normal inspection ENT: positive ENT inspection nml Neck: positive Nml inspection Respiratory: positive Chest non-tender and No respiratory distress Cardiovascular: positive Regular rate & rhythm Abdomen: positive Tenderness Skin: positive Color nml Extremities: positive Non-tender Neurologic/Psychiatric: positive Oriented x3 Lab Results 12/24/24 04:56 12/24/24 04:56 Other Labs: Lab Results x24hrs 12/24/24 Range/Units 04:56 WBC 11.5 H (4.8-10.8) x10^3/uL RBC 4.16 L (4.20-5.40) 10^6/uL Hgb 12.6 (12.0-16.0) g/dL Hct 38.5 (37.0-47.0) % MCV 92.5 (81.0-99.0) fL MCH 30.3 (27.0-31.0) pg MCHC 32.7 (32.0-36.0) g/dL RDW 14.2 (12.0-15.0) % Plt Count 152 (130-450) 10^3/uL MPV 11.4 H (7.9-10.8) fL Neut # (Auto) 9.5 H (1.5-6.6) 10^3/uL Lymph # (Auto) 1.0 L (1.5-3.5) 10^3/uL Atlantic # (Auto) 0.9 (0.0-1.0) 10^3/uL Eos # (Auto) 0.1 (0.0-0.7) 10^3/uL Baso # (Auto) 0.0 (0.0-0.1) 10^3/uL Absolute Nucleated RBC 0.00 x10^3/uL Nucleated RBC % 0.0 /100WBC Sodium 137 (135-145) mmol/L Potassium 3.6 (3.5-4.5) mmol/L Chloride 105 (101-111) mmol/L Carbon Dioxide 25 (21-32) mmol/L Anion Gap 7.0 (6-13) BUN 11 (6-20) mg/dL Creatinine 0.7 (0.6-1.3) mg/dL Estimated GFR (MDRD) 80 L (>89) Glucose 134 H (74-104) mg/dL Calcium 7.9 L (8.5-10.3) mg/dL Assessment/Plan Problem List (1) Diverticulitis: Impression: Diverticulitis without abscess, failed outpatient treatment Medically managed for now 12/23/2024: WBC down to 12.5. No improvement in symptoms as of this morning, but after a few hours her appetite has started to return. I am escalating her to full liquid diet. I am continuing Zosyn for another day before likely transitioning to Augmentin. Monitoring daily BMP to watch for renal toxicity 12/24/2024: WBC continues to improve to 11.5 today. She has completed 3 days of IV Zosyn. She tolerated full liquid diet yesterday with some nausea. Continues to have a lot of gas and loose bowel movements. I am escalating her to a soft low fiber diet today and transitioning her from Zosyn to Augmentin twice daily. Continue to monitor daily CBC while inpatient to track effectiveness of antibiotics. I provided her with printed information on diverticulosis and diverticulitis including measures to prevent recurrence. Anticipate discharge tomorrow (2) Hypoxia: Impression: Hypoxic in the ER, now on room air. This was likely due to abdominal pain preventing full inspiration (3) Tremor: Impression: Continuing home dose primidone (4) Hypertension: Impression: Continuing home dose diltiazem to 40 mg CD, lisinopril 20 mg p.o. daily (5) Depression: Impression: Continue bupropion 150 mg twice daily, sertraline 200 mg daily
[2024-12-24] MEDS: AMOX/CLAV 875 MG/125 MG TABLET PO SCH (21:56)
[2024-12-25 05:39] LABS: BASOPHILS % (AUTO) 0.4 %; EOSINOPHILS # (AUTO) 0.1 10^3/uL (0.0-0.7); EOSINOPHILS % (AUTO) 0.6 %; HCT - HEMATOCRIT 36.9 % (37.0-47.0); HGB - HEMOGLOBIN 12.4 g/dL (12.0-16.0); LYMPHOCYTES # (AUTO) 1.1 10^3/uL (1.5-3.5); LYMPHOCYTES % (AUTO) 10.5 %; MEAN CORPUSCULAR HEMOGLOBIN 30.5 pg (27.0-31.0); MEAN CORPUSCULAR HGB CONC 33.6 g/dL (32.0-36.0); MEAN CORPUSCULAR VOLUME 90.7 fL (81.0-99.0); MEAN PLATELET VOLUME 10.3 fL (7.9-10.8); MONOCYTES % (AUTO) 9.1 %; NEUTROPHILS # (AUTO) 8.5 10^3/uL (1.5-6.6); NEUTROPHILS % (AUTO) 78.2 %; PLT - PLATELET COUNT 152 10^3/uL (130-450); RED BLOOD COUNT 4.07 10^6/uL (4.20-5.40); WHITE BLOOD COUNT 10.9 x10^3/uL (4.8-10.8)
[2024-12-25 05:52] LABS: CREATININE 0.6 mg/dL (0.6-1.3); POTASSIUM 3.4 mmol/L (3.5-4.5)
[2024-12-25] MEDS: POTASSIUM CHLORIDE 20 MEQ TABLET PO ONE (10:32)
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
[2024-12-25 13:47] VITALS: BP 157/78; TEMP 97.5; O2SAT 95
== END 2024-12-25 14:40 | disposition home or self-care (01) | DRG 392 ==
LOC: ED 19:54 → MS2 12-21 14:47
PROVIDERS: ADMIT Physician Assistant Medical; ATTEND Physician Assistant Medical
DX: Z20.828 Contact with and (suspected) exposure to other viral communicable diseases; Z90.710 Acquired absence of both cervix and uterus; Z91.411 Personal history of adult psychological abuse; Z79.899 Other long term (current) drug therapy; E86.0 Dehydration; I10 Essential (primary) hypertension; Z98.84 Bariatric surgery status; Z68.41 Body mass index [BMI] 40.0-44.9, adult; R94.31 Abnormal electrocardiogram [ECG] [EKG]; G25.0 Essential tremor; Z20.822 Contact with and (suspected) exposure to COVID-19; F41.9 Anxiety disorder, unspecified; Z20.818 Contact with and (suspected) exposure to other bacterial communicable diseases; Z90.49 Acquired absence of other specified parts of digestive tract; I49.3 Ventricular premature depolarization; F32.A Depression, unspecified; E87.5 Hyperkalemia; A41.9 Sepsis, unspecified organism; E66.9 Obesity, unspecified; K57.32 Diverticulitis of large intestine without perforation or abscess without bleeding; R09.02 Hypoxemia